=== PATIENT | male | born 1955 | race Caucasian/White ===

== ENCOUNTER → 2023-04-25 08:49 | Outpatient (REF) | payer MEDICARE, OTHER, SELFPAY ==
[2023-04-25 10:38] LABS: % Basophils 0.8 % (0-2); % Eosinophils 1.4 % (0-6); % Immature Granulocytes 0.3 % (0-0.5); % Lymphocytes 27.5 % (20.5-51.1); % Monocytes 7.2 % (1.7-9.3); % Neutrophils 62.8 % (42.2-75.2); Absolute Basophils 0.1 10^3/uL (0-0.2); Absolute Eosinophils 0.1 10^3/uL (0-0.7); Absolute Lymphocytes 2.1 10^3/uL (1.2-3.4); Absolute Monocytes 0.6 10^3/uL (0.1-0.6); Absolute Neutrophils 4.8 10^3/uL (1.4-6.5); Hemoglobin 16.6 g/dL (13.0-18.0); Mean Corp Hgb Conc. 33.9 g/dL (33.0-37.0); Mean Corpuscular Hgb 32.1 pg (27.0-31.0); Mean Corpuscular Volume 94.8 fL (80.0-94.0); Mean Platelet Volume 10.7 fL (7.4-10.4); Nucleated Red Blood Cells % 0 % (-); Platelet Count 230 10^3/uL (130-400); Red Blood Cell Count 5.17 10^6/uL (4.70-6.10); Red Cell Dist. Width 13.4 % (11.5-14.5); White Blood Cell Count 7.6 10^3/uL (4.8-10.8)
[2023-04-25 11:13] LABS: ALT (SGPT) 39 U/L (0-50); AST (SGOT) 33 U/L (17-59); Albumin 4.9 g/dl (3.5-5.0); Alkaline Phosphatase 75 U/L (38-126); Blood Urea Nitrogen 23 mg/dl (9-20); Calcium 9.7 mg/dl (8.4-10.2); Carbon Dioxide 26 mmol/L (22-30); Chloride 109 mmol/L (98-107); Glucose 98 mg/dl (70-99); Potassium 4.8 mmol/L (3.5-5.1); Sodium 141 mmol/L (135-145); Total Bilirubin 0.7 mg/dl (0.2-1.3); Total Cholesterol 157 mg/dl (50-199); Total Protein 8.1 g/dl (6.3-8.2); Triglyceride 115 mg/dl (10-149); Uric Acid 6.9 mg/dl (3.5-8.5); Very Low Density Lipoprotein 23 mg/dl (0-30); eGFR > 60.00
[2023-04-25 11:23] LABS: Free T4 1.04 ng/dl (0.78-2.19)
[2023-04-25 11:32] LABS: HDL Cholesterol 55 mg/dl; LDL Cholesterol, Calculated 79 mg/dl
[2023-04-25 11:37] LABS: TSH 0.94 uIU/ml (0.47-4.68)
[2023-04-25 14:06] LABS: Glycohemoglobin (HgbA1c) 5.9 % (4.0-5.6)
[2023-04-26 17:02] LABS: PSA Total 0.6 ng/mL (0.0-4.0)
== END ==
LOC: REG 08:49
PROVIDERS: ATTENDING PHYSICIAN Internal Medicine
DX: I10 Essential (primary) hypertension (principal); E11.65 Type 2 diabetes mellitus with hyperglycemia; R97.20 Elevated prostate specific antigen [PSA]
CPT/HCPCS: 36415; 80053; 80061; 83036; 84153; 84154; 84439; 84443; 84550; 85025